=== PATIENT | female | born 1965 | race Caucasian/White ===

== ENCOUNTER → 2019-07-29 14:20 | Outpatient (CLI) | payer OTHER, SELFPAY ==
--- NOTE | 2019-07-29 | DI.US.S_ITS ---
PROCEDURE: US CAROTID DOPPLER BI INDICATIONS: DIZZINESS, GIDDINESS TECHNIQUE: Color and pulse Doppler interrogation was performed of both carotid systems, with image documentation and velocity measurements. COMPARISON: None. FINDINGS: Stenosis calculations are based on SRU ([employer] in [employer]) criteria. Right side: Suboptimal evaluation due to high bifurcation. The Brachial blood pressure: 110/77 mm Hg. Common carotid artery peak systolic velocity: 68 cm/sec. Internal carotid artery peak systolic velocity: 87 cm/sec. Internal carotid artery end diastolic velocity: 34 cm/sec. External carotid artery peak systolic velocity: 94 cm/sec. ICA/CCA peak systolic ratio: 1.4. Cao scale imaging description: None Percent internal carotid artery stenosis: None. Vertebral artery: Flow direction is antegrade. Left side: Brachial blood pressure: 118/83 mm Hg. Common carotid artery peak systolic velocity: 86 cm/sec. Internal carotid artery peak systolic velocity: 76 cm/sec. Internal carotid artery end diastolic velocity: 34 cm/sec. External carotid artery peak systolic velocity: 79 cm/sec. ICA/CCA peak systolic ratio: 0.9. Cao scale imaging description: No definite plaque Percent internal carotid artery stenosis: None. Vertebral artery: Flow direction is antegrade. IMPRESSION: No hemodynamically significant ICA stenosis Dictated by: Ac Grady M.D. on 07/29/2019 at 17:31 Approved by: Ac Grady M.D. on 07/29/2019 at 17:33
== END ==
PROVIDERS: PCP Family Medicine; Visit Provider Family Medicine
DX: R42 Dizziness and giddiness (principal); I67.1 Cerebral aneurysm, nonruptured; H53.469 Homonymous bilateral field defects, unspecified side; R47.9 Unspecified speech disturbances
CPT/HCPCS: 93880